=== PATIENT | male | born 1975 | race Caucasian/White ===

== ENCOUNTER 2019-02-28 17:01 | Emergency (ER) | payer BC ==
[2019-02-28 17:06] VITALS: TEMP 98.3
--- NOTE | 2019-02-28 17:48 | ED ---
General Adult HPI - General Source: patient Mode of arrival: ambulatory Limitations: no limitations <Jose Mcmahon - Last Filed: 02/28/19 20:40> <Harpal Molina - Last Filed: 03/02/19 23:00> - General Chief complaint: Recheck/Abnormal Lab/Rx Stated complaint: High blood pressure Time Seen by Provider: 02/28/19 17:24 - History of Present Illness Initial comments: Patient is a 43-year-old male presenting to the emergency department with chief complaint of hypertension. Patient states he was at his primary care office for possible sciatica symptoms and was triaged with a high blood pressure. Patient was sent directly to the ED for further evaluation. Patient reports he was initially on lisinopril hydrochlorothiazide about 2 years ago but stopped taking the medication about one year ago. Patient states she did not follow-up with a primary care for about 2 years. Patient reports she has not had any chest pain, shortness of breath, headaches, visual disturbances, nausea, vomiting, lightheadedness or dizziness. He does not have any complaints right now. (Jose Mcmahon) - Related Data Previous Rx's Medication Instructions Recorded Lisinopril [Zestril] 10 mg PO BID #60 tab 06/04/14 Lisinopril 20 mg PO DAILY #8 tab 02/28/19 Allergies Allergy/AdvReac Type Severity Reaction Status Date / Time No Known Allergies Allergy Verified 02/28/19 17:07 Review of Systems ROS Other: All systems not noted in ROS Statement are negative. <Jose Mcmahon - Last Filed: 02/28/19 20:40> ROS Other: All systems not noted in ROS Statement are negative. <Harpal Molina - Last Filed: 03/02/19 23:00> ROS Statement: Those systems with pertinent positive or pertinent negative responses have been documented in the HPI. Past Medical History Past Medical History: Diabetes Mellitus, Hyperlipidemia, Hypertension History of Any Multi-Drug Resistant Organisms: None Reported Past Surgical History: No Surgical Hx Reported Past Anesthesia/Blood Transfusion Reactions: No Reported Reaction Past Psychological History: No Psychological Hx Reported Smoking Status: Never smoker Past Alcohol Use History: Occasional Past Drug Use History: Marijuana - Past Family History Father Family Medical History: No Reported History <Jose Mcmahon - Last Filed: 02/28/19 20:40> General Exam Limitations: no limitations General appearance: alert, in no apparent distress Head exam: Present: atraumatic, normocephalic, normal inspection Eye exam: Present: normal appearance, PERRL, EOMI. Absent: other (no papilledema ) Pupils: Present: normal accommodation ENT exam: Present: normal exam Neck exam: Present: normal inspection, full ROM Respiratory exam: Present: normal lung sounds bilaterally Cardiovascular Exam: Present: regular rate, normal rhythm, normal heart sounds GI/Abdominal exam: Present: soft. Absent: distended, tenderness, guarding Extremities exam: Present: normal inspection, full ROM, normal capillary refill (+2 ulnar and radial pulses bilaterally.) Back exam: Present: normal inspection, full ROM. Absent: tenderness Neurological exam: Present: alert, oriented X3, CN II-XII intact, normal gait Psychiatric exam: Present: normal affect, normal mood Skin exam: Present: warm, dry, intact, normal color <Jose Mcmahon - Last Filed: 02/28/19 20:40> Course Vital Signs 02/28/19 02/28/19 02/28/19 17:03 18:12 18:58 Temperature 98.3 F 98.3 F Pulse Rate 92 90 94 Respiratory 19 18 19 Rate Blood Pressure 203/124 177/119 179/101 O2 Sat by Pulse 99 100 99 Oximetry Medical Decision Making - Lab Data Result diagrams: 02/28/19 17:22 02/28/19 17:22 <Jose Mcmahon - Last Filed: 02/28/19 20:40> - Lab Data Result diagrams: 02/28/19 17:22 02/28/19 17:22 <Harpal Molina - Last Filed: 03/02/19 23:00> - Medical Decision Making Patient is a 43-year-old male male presenting to the emergency department with a chief complaint of hypertension. Patient is completely is symptomatically the ED. No papilledema present. CBC unremarkable. CMP shows decreasing creatinine but the patient has not in acute kidney failure at the moment. UA shows glucose but patient is diabetic. Patient was given hydralazine in the ED and his blood pressure dropped. Patient was taking lisinopril hydrochlorothiazide for some time but has not taken the medication over the last year. Patient will be discharged with an eight-day course of lisinopril daily. Patient states he only has an appointment scheduled with his primary care within a week. Strict return parameters were thoroughly discussed with patient was understanding and agreeable. Case discussed with physician. (Jose Mcmahon) - Lab Data Lab Results 02/28/19 02/28/19 02/28/19 Range/Units 17:22 17:22 17:22 WBC 11.8 H (3.8-10.6) k/uL RBC 5.41 (4.30-5.90) m/uL Hgb 15.0 (13.0-17.5) gm/dL Hct 44.4 (39.0-53.0) % MCV 81.9 (80.0-100.0) fL MCH 27.7 (25.0-35.0) pg MCHC 33.8 (31.0-37.0) g/dL RDW 12.7 (11.5-15.5) % Plt Count 334 (150-450) k/uL Neutrophils % 59 % Lymphocytes % 33 % Monocytes % 4 % Eosinophils % 2 % Basophils % 0 % Neutrophils # 6.9 (1.3-7.7) k/uL Lymphocytes # 3.9 (1.0-4.8) k/uL Monocytes # 0.5 (0-1.0) k/uL Eosinophils # 0.2 (0-0.7) k/uL Basophils # 0.1 (0-0.2) k/uL Sodium 137 (137-145) mmol/L Potassium 4.3 (3.5-5.1) mmol/L Chloride 101 (98-107) mmol/L Carbon Dioxide 24 (22-30) mmol/L Anion Gap 12 mmol/L BUN 17 (9-20) mg/dL Creatinine 0.56 L (0.66-1.25) mg/dL Est GFR (CKD-EPI)AfAm >90 (>60 ml/min/1.73 sqM) Est GFR (CKD-EPI)NonAf >90 (>60 ml/min/1.73 sqM) Glucose 242 H (74-99) mg/dL Calcium 9.8 (8.4-10.2) mg/dL Total Bilirubin 0.5 (0.2-1.3) mg/dL AST 18 (17-59) U/L ALT 17 (4-49) U/L Alkaline Phosphatase 79 (38-126) U/L Total Protein 8.0 (6.3-8.2) g/dL Albumin 4.7 (3.5-5.0) g/dL Urine Color Yellow Urine Appearance Clear (Clear) Urine pH 5.5 (5.0-8.0) Ur Specific Preemption 1.041 H (1.001-1.035) Urine Protein Trace H (Negative) Urine Glucose (UA) 4+ H (Negative) Urine Ketones 1+ H (Negative) Urine Blood Negative (Negative) Urine Nitrite Negative (Negative) Urine Bilirubin Negative (Negative) Urine Urobilinogen <2.0 (<2.0) mg/dL Ur Leukocyte Esterase Negative (Negative) - EKG Data EKG Comments: Normal sinus rhythm, no ST changes, Normal sinus rhythm, ventricular rate 94, [place] interval 170, QRS 94, QTC 447 (Jose Mcmahon) Disposition Is patient prescribed a controlled substance at d/c from ED?: No Time of Disposition: 18:39 <Jose Mcmahon - Last Filed: 02/28/19 20:40> <Harpal Molina - Last Filed: 03/02/19 23:00> Clinical Impression: Asymptomatic hypertension Disposition: HOME SELF-CARE Condition: Stable Instructions (If sedation given, give patient instructions): Hypertension and Diabetes (ED) Additional Instructions: Please take prescribed medication as directed. Follow-up with primary care. Return to emergency department if symptoms worsen. Prescriptions: Lisinopril 20 mg PO DAILY #8 tab Referrals: Ronaldo Torres MD [Primary Care Provider] - 1-2 days
[2019-02-28 17:50] LABS: Appearance,Urine Clear (Clear); Basophils # (A) 0.1 k/uL (0-0.2); Basophils % (A) 0 %; Bilirubin,Urine Negative (Negative); Blood,Urine Negative (Negative); Color,Urine Yellow; Eosinophils # (A) 0.2 k/uL (0-0.7); Eosinophils % (A) 2 %; Glucose,Urine (UA) 4+ (Negative); HCT 44.4 % (39.0-53.0); Ketones,Urine 1+ (Negative); Leukocyte Esterase,Urine Negative (Negative); Lymphocytes # (A) 3.9 k/uL (1.0-4.8); Lymphocytes % (A) 33 %; MCH 27.7 pg (25.0-35.0); MCHC 33.8 g/dL (31.0-37.0); MCV 81.9 fL (80.0-100.0); Mean Platelet Volume 7.3; Monocytes # (A) 0.5 k/uL (0-1.0); Monocytes % (A) 4 %; Neutrophils # (A) 6.9 k/uL (1.3-7.7); Neutrophils % (A) 59 %; Nitrite,Urine Negative (Negative); PH, Urine 5.5 (5.0-8.0); Platelet Count 334 k/uL (150-450); Protein,Urine Trace (Negative); RBC 5.41 m/uL (4.30-5.90); RDW 12.7 % (11.5-15.5); Specific Gravity,Urine 1.041 (1.001-1.035); Urobilinogen,Urine <2.0 mg/dL (<2.0); WBC 11.8 k/uL (3.8-10.6)
[2019-02-28 18:00] LABS: ALT 17 U/L (4-49); AST 18 U/L (17-59); African American GFR (CKD) >90 (>60 ml/min/1.73 sqM); Albumin 4.7 g/dL (3.5-5.0); Alkaline Phosphatase 79 U/L (38-126); Anion Gap 12 mmol/L; Blood Urea Nitrogen 17 mg/dL (9-20); Calcium 9.8 mg/dL (8.4-10.2); Carbon Dioxide 24 mmol/L (22-30); Chloride 101 mmol/L (98-107); Glucose 242 mg/dL (74-99); Non-African American GFR(CKD) >90 (>60 ml/min/1.73 sqM); Potassium 4.3 mmol/L (3.5-5.1); Sodium 137 mmol/L (137-145); Total Bilirubin 0.5 mg/dL (0.2-1.3)
[2019-02-28] MEDS ORDERED: hydrALAZINE HCL 20 MG/ML 1 ML VIAL IVP STA (18:13)
[2019-02-28 19:05] VITALS: PULSE 94; RESP 19
[2019-02-28 20:43] VITALS: BP 179/101
== END 2019-02-28 18:58 | disposition home or self-care (01) ==
LOC: EC 17:01
DX: I10 Essential (primary) hypertension (principal); R79.89 Other specified abnormal findings of blood chemistry; E11.9 Type 2 diabetes mellitus without complications
CPT/HCPCS: 36415; 93005; 80053; 85025; 81003; 99283; 96374; J0360

== ENCOUNTER 2019-03-05 16:32 | Emergency (ER) | payer BC ==
[2019-03-05 16:50] VITALS: RESP 18
[2019-03-05] MEDS ORDERED: KETOROLAC 30 MG/ML 1 ML VIAL IM STA (17:41)
--- NOTE | 2019-03-05 18:10 | XR ---
EXAMINATION TYPE: XR tibia fibula LT DATE OF EXAM: 03/05/2019 COMPARISON: NONE HISTORY: Pain TECHNIQUE: 4 views FINDINGS: I see no fracture nor dislocation. Joint spaces are normal. Ankle joint and knee joint appe ar intact. IMPRESSION: Negative left tibia and fibula exam.
--- NOTE | 2019-03-05 19:00 | US ---
EXAMINATION TYPE: US venous doppler duplex LE LT DATE OF EXAM: 03/05/2019 6:51 PM COMPARISON: NONE CLINICAL HISTORY: pain. pain SIDE PERFORMED: Left TECHNIQUE: The lower extremity deep venous system is examined utilizing real time linear array sonog [place] with graded compression, doppler sonography and color-flow sonography. VESSELS IMAGED: External Iliac Vein (EIV) Common Femoral Vein Deep Femoral Vein Greater Saphenous Vein * Femoral Vein Popliteal Vein Small Saphenous Vein * Proximal Calf Veins (* superficial vessels) Left Leg: Negative for DVT IMPRESSION: Normal exam. No evidence of deep venous thrombosis in the left leg.
[2019-03-05 19:23] VITALS: BP 182/103; PULSE 94; TEMP 98.6
[2019-03-05] MEDS ORDERED: ACET/COD 300 MG/30 MG STARTER PACK 6 TAB BTL PO STA (19:32)
--- NOTE | 2019-03-05 19:32 | ED ---
General Adult HPI - General Source: patient, RN notes reviewed Mode of arrival: ambulatory Limitations: no limitations <Get Kirkpatrick - Last Filed: 03/05/19 20:49> <Vidhya Jara - Last Filed: 03/10/19 14:46> - General Chief complaint: Extremity Problem,Nontraumatic Stated complaint: Leg pain Time Seen by Provider: 03/05/19 17:14 - History of Present Illness Initial comments: 43-year-old male presents to the emergency determine for chief complaint of left anterior leg pain. Patient states that this started about a week ago. States that he did try to see primary care was signed have high blood pressure and so that became the main concern and he did not have his leg evaluated. Patient states movement makes the pain worse. Patient states lifting the leg makes it worse. Patient denies any swelling or erythema of the left leg. Denies fevers or chills. Denies any abdominal pain. Denies any numbness or weakness of the left lower extremity. Denies any bladder or bowel changes. Patient is ambulatory in the left leg. Patient has no other complaints at this time including shortness of breath, chest pain, abdominal pain, nausea or vomiting, headache, or visual changes. (Get Kirkpatrick) - Related Data Previous Rx's Medication Instructions Recorded Lisinopril [Zestril] 10 mg PO BID #60 tab 06/04/14 Lisinopril 20 mg PO DAILY #8 tab 02/28/19 Allergies Allergy/AdvReac Type Severity Reaction Status Date / Time No Known Allergies Allergy Verified 03/05/19 16:50 Review of Systems ROS Other: All systems not noted in ROS Statement are negative. <Get Kirkpatrick - Last Filed: 03/05/19 20:49> ROS Other: All systems not noted in ROS Statement are negative. <Vidhya Jara - Last Filed: 03/10/19 14:46> ROS Statement: Those systems with pertinent positive or pertinent negative responses have been documented in the HPI. Past Medical History Past Medical History: Diabetes Mellitus, Hyperlipidemia, Hypertension History of Any Multi-Drug Resistant Organisms: None Reported Past Surgical History: No Surgical Hx Reported Past Anesthesia/Blood Transfusion Reactions: No Reported Reaction Past Psychological History: No Psychological Hx Reported Smoking Status: Never smoker Past Alcohol Use History: Occasional Past Drug Use History: Marijuana - Past Family History Father Family Medical History: No Reported History <Get Kirkpatrick - Last Filed: 03/05/19 20:49> General Exam Limitations: no limitations General appearance: alert, in no apparent distress Head exam: Present: atraumatic, normocephalic, normal inspection Eye exam: Present: normal appearance, PERRL, EOMI. Absent: scleral icterus, conjunctival injection, periorbital swelling ENT exam: Present: normal exam, mucous membranes moist Neck exam: Present: normal inspection, full ROM. Absent: tenderness, meningismus, lymphadenopathy Respiratory exam: Present: normal lung sounds bilaterally. Absent: respiratory distress, wheezes, rales, rhonchi, stridor Cardiovascular Exam: Present: regular rate, normal rhythm, normal heart sounds. Absent: systolic murmur, diastolic murmur, rubs, gallop, clicks Extremities exam: Present: full ROM (Full range of motion of the left lower extremity, including left hip knee and ankle. However patient does have increased pain when flexing the left hip with an extended knee. Positive straight leg raise test.), normal capillary refill (Capillary refill less than 2 seconds, Doppler signals in bilateral lower extremities.). Absent: tenderness (No significant tenderness noted to the left lower leg. ), pedal edema, joint swelling, calf tenderness (No tenderness in the left calf. Sensation intact in left calf. No increased circumference or edema. No erythema.) <Get Kirkpatrick P - Last Filed: 03/05/19 20:49> Course Vital Signs 03/05/19 03/05/19 16:49 19:21 Temperature 98.4 F 98.6 F Pulse Rate 90 94 Respiratory 18 18 Rate Blood Pressure 162/106 182/103 O2 Sat by Pulse 98 97 Oximetry Medical Decision Making <Get Kirkpatrick P - Last Filed: 03/05/19 20:49> <Vidhya Jara - Last Filed: 03/10/19 14:46> - Medical Decision Making 43-year-old presents with left leg pain. Pain is mostly in the anterior lateral tib-fib area. He does have some pain in the left buttocks as well. Pain is exacerbated with straight leg raise. Patient states the pain does sometimes shoot in his symptoms of burning pain in the left anterior tib-fib area. Denies trauma. Neurovascular status is intact the left lower extremity. Physical exam is generally unremarkable. X-ray of the left tib-fib is negative. Ultrasound of the left lower extremity shows no evidence of DVT. Normal exam. Patient may have radiculopathy symptoms are consistent with this. Patient does have diabetes, will not be started on steroids. Discussed anti-inflammatory medications. He has an appointment with primary care tomorrow for which she will follow-up. I also hand wrote Dr. Cox's number for consult on the paperwork. Is hypertensive here in the emergency room. This is chronic and currently being managed by primary care. He is asymptomatic. (Get Kirkpatrick) I was available for consultation in the emergency department. The history and physical exam were done by the midlevel provider. I was consulted for this patients care. I reviewed the case with the midlevel provider and based on their presentation of the patient, I agree with the assessment, medical decision making and plan of care as documented. Chart was dictated using [employer] dictation software. Attempts were made to correct any dictation errors however some typographical errors may persist. (Vidhya Jara) Disposition Is patient prescribed a controlled substance at d/c from ED?: No Time of Disposition: 19:31 <Get Kirkpatrick - Last Filed: 03/05/19 20:49> <Vidhya Jara - Last Filed: 03/10/19 14:46> Clinical Impression: Leg pain, left Disposition: HOME SELF-CARE Condition: Good Instructions (If sedation given, give patient instructions): Sciatica (ED), Leg Pain (ED) Additional Instructions: Please take Motrin and Tylenol for inflammatory and pain management. If pain is severe you may take Tylenol [address] operate machinery while taking this. Follow-up with your primary care provider tomorrow at your scheduled appointment for leg pain and high blood pressure. Follow up with orthopedics as well. Return here to the emergency department if you have any worsening symptoms. Referrals: Ronaldo Torres MD [Primary Care Provider] - 1-2 days
== END 2019-03-05 20:02 | disposition home or self-care (01) ==
LOC: EC 16:32
DX: M79.605 Pain in left leg (principal); I10 Essential (primary) hypertension; E11.9 Type 2 diabetes mellitus without complications
CPT/HCPCS: 73590; 93971; 99284; 96372; J1885

== ENCOUNTER 2019-04-17 10:34 | Emergency (ER) | payer BC ==
[2019-04-17 10:45] VITALS: RESP 18; TEMP 98.4
[2019-04-17] MEDS ORDERED: ASPIRIN 81 MG PO STA (10:59)
[2019-04-17 11:55] LABS: Basophils # (A) 0.1 k/uL (0-0.2); Basophils % (A) 0 %; Eosinophils # (A) 0.2 k/uL (0-0.7); Eosinophils % (A) 1 %; HCT 41.9 % (39.0-53.0); HGB 14.6 gm/dL (13.0-17.5); Lymphocytes # (A) 4.3 k/uL (1.0-4.8); Lymphocytes % (A) 34 %; MCH 27.8 pg (25.0-35.0); MCHC 34.7 g/dL (31.0-37.0); Mean Platelet Volume 7.5; Monocytes # (A) 0.6 k/uL (0-1.0); Monocytes % (A) 5 %; Neutrophils # (A) 7.3 k/uL (1.3-7.7); Neutrophils % (A) 58 %; Platelet Count 384 k/uL (150-450); RBC 5.24 m/uL (4.30-5.90); RDW 12.2 % (11.5-15.5); WBC 12.6 k/uL (3.8-10.6)
[2019-04-17 11:57] LABS: ALT 14 U/L (4-49); AST 16 U/L (17-59); African American GFR (CKD) >90 (>60 ml/min/1.73 sqM); Albumin 4.5 g/dL (3.5-5.0); Alkaline Phosphatase 45 U/L (38-126); Anion Gap 11 mmol/L; Blood Urea Nitrogen 19 mg/dL (9-20); Calcium 10.3 mg/dL (8.4-10.2); Carbon Dioxide 20 mmol/L (22-30); Chloride 103 mmol/L (98-107); Glucose 201 mg/dL (74-99); Magnesium 1.6 mg/dL (1.6-2.3); Non-African American GFR(CKD) >90 (>60 ml/min/1.73 sqM); Potassium 4.6 mmol/L (3.5-5.1); Sodium 134 mmol/L (137-145); Total Bilirubin 0.4 mg/dL (0.2-1.3); Total Protein 7.5 g/dL (6.3-8.2)
--- NOTE | 2019-04-17 11:58 | XR ---
EXAMINATION TYPE: XR chest 2V DATE OF EXAM: 04/17/2019 COMPARISON: 01/18/2015 HISTORY: Dysrhythmia TECHNIQUE: Frontal and lateral views of the chest are obtained. FINDINGS: There is no focal air space opacity, pleural effusion, or pneumothorax seen. The cardiac silhouette size is within normal limits. The osseous structures are intact. IMPRESSION: No acute cardiopulmonary process.
[2019-04-17 12:02] LABS: Partial Thromboplastin Time 25.6 sec (22.0-30.0); Prothrombin Time 10.2 sec (9.0-12.0)
--- NOTE | 2019-04-17 12:52 | ED ---
Arrhythmia/Palpitations HPI - General Chief Complaint: Arrhythmia/Palpitations Stated Complaint: heart concerns/dizziness Time Seen by Provider: 04/17/19 10:57 Source: patient Mode of arrival: ambulatory Limitations: no limitations - History of Present Illness Initial Comments: Patient is a 43-year-old male presenting to the emergency Department with a chief complaint of palpitations. Patient reports symptoms began about 3 days ago. Initially the symptoms were intermittent, however today he felt the palpitations were more constant. States that currently he does not have any symptoms. Denies any chest pain. Does report some lightheadedness but denies any dizziness. Denies any one-sided weakness or paresthesias. Denies any shortness of breath or dyspnea on exertion. Denies any back pain abdominal pain, denies vomiting or diarrhea. Denies any diaphoretic O's. Denies taking medication to alleviate the symptoms. States his most recent cardiac checkup was about 2 years ago. He states he never required Holter monitor previously. MD Complaint: palpitations - Related Data Home Medications Medication Instructions Recorded Confirmed Atorvastatin [Lipitor] 20 mg PO DAILY 04/17/19 04/17/19 Ergocalciferol [Vitamin D2] 50,000 unit PO DECKER 04/17/19 04/17/19 Ibuprofen [Motrin] 800 mg PO Q8H 04/17/19 04/17/19 Lisinopril-Hctz 20-12.5 mg 1 tab PO DAILY 04/17/19 04/17/19 [Zestoretic 20-12.5] amLODIPine [Norvasc] 5 mg PO DAILY 04/17/19 04/17/19 metFORMIN HCL 850 mg PO BID 04/17/19 04/17/19 traMADol HCL [Ultram] 50 mg PO TID PRN 04/17/19 04/17/19 Allergies Allergy/AdvReac Type Severity Reaction Status Date / Time No Known Allergies Allergy Verified 04/17/19 11:53 Review of Systems ROS Statement: Those systems with pertinent positive or pertinent negative responses have been documented in the HPI. ROS Other: All systems not noted in ROS Statement are negative. Past Medical History Past Medical History: Diabetes Mellitus, Hyperlipidemia, Hypertension Additional Past Medical History / Comment(s): chronic leg pain History of Any Multi-Drug Resistant Organisms: None Reported Past Surgical History: No Surgical Hx Reported Past Anesthesia/Blood Transfusion Reactions: No Reported Reaction Past Psychological History: No Psychological Hx Reported Smoking Status: Never smoker Past Alcohol Use History: Occasional Past Drug Use History: None Reported, Marijuana - Past Family History Father Family Medical History: No Reported History General Exam Limitations: no limitations General appearance: alert, in no apparent distress Head exam: Present: atraumatic, normocephalic, normal inspection Eye exam: Present: normal appearance Pupils: Present: normal accommodation ENT exam: Present: normal exam Neck exam: Present: normal inspection, full ROM Respiratory exam: Present: normal lung sounds bilaterally Cardiovascular Exam: Present: regular rate, normal rhythm, normal heart sounds GI/Abdominal exam: Present: soft. Absent: distended, guarding Extremities exam: Present: normal inspection, full ROM, normal capillary refill, other (+2 ulnar and radial pulses bilaterally.) Back exam: Present: normal inspection, full ROM Neurological exam: Present: alert, oriented X3 Psychiatric exam: Present: normal affect, normal mood Skin exam: Present: warm, dry, intact, normal color Course Vital Signs 04/17/19 04/17/19 04/17/19 10:42 12:18 13:14 Temperature 98.4 F Pulse Rate 97 91 93 Respiratory 18 18 18 Rate Blood Pressure 128/88 109/73 113/80 O2 Sat by Pulse 99 97 99 Oximetry EKG Findings - EKG Comments: EKG Findings:: Normal sinus rhythm, no ST changes or T-wave inversions. Particular rate 93, SD 166, QRS 90, QTC 410. Medical Decision Making - Medical Decision Making Patient is a 43-year-old male presenting to the emergency department the chief complaint of palpitations. Physical examination is unremarkable. EKG shows normal sinus rhythm with no ST changes. Laboratory work is unremarkable. Patient does have elevated glucose but he is diabetic. Initial troponin is negative. Chest x-ray is unremarkable. Patient states currently he is asymptomatic. Advised the patient to follow with cardiology and have an evaluation with a Holter monitor. Return parameters were thoroughly discussed with patient was understanding and agreeable. Case discussed with physician. - Lab Data Result diagrams: 04/17/19 11:32 04/17/19 11:32 Lab Results 04/17/19 04/17/19 04/17/19 Range/Units 11:32 11:32 11:32 WBC 12.6 H (3.8-10.6) k/uL RBC 5.24 (4.30-5.90) m/uL Hgb 14.6 (13.0-17.5) gm/dL Hct 41.9 (39.0-53.0) % MCV 80.0 (80.0-100.0) fL MCH 27.8 (25.0-35.0) pg MCHC 34.7 (31.0-37.0) g/dL RDW 12.2 (11.5-15.5) % Plt Count 384 (150-450) k/uL Neutrophils % 58 % Lymphocytes % 34 % Monocytes % 5 % Eosinophils % 1 % Basophils % 0 % Neutrophils # 7.3 (1.3-7.7) k/uL Lymphocytes # 4.3 (1.0-4.8) k/uL Monocytes # 0.6 (0-1.0) k/uL Eosinophils # 0.2 (0-0.7) k/uL Basophils # 0.1 (0-0.2) k/uL PT 10.2 (9.0-12.0) sec INR 1.0 (<1.2) APTT 25.6 (22.0-30.0) sec Sodium 134 L (137-145) mmol/L Potassium 4.6 (3.5-5.1) mmol/L Chloride 103 (98-107) mmol/L Carbon Dioxide 20 L (22-30) mmol/L Anion Gap 11 mmol/L BUN 19 (9-20) mg/dL Creatinine 0.66 (0.66-1.25) mg/dL Est GFR (CKD-EPI)AfAm >90 (>60 ml/min/1.73 sqM) Est GFR (CKD-EPI)NonAf >90 (>60 ml/min/1.73 sqM) Glucose 201 H (74-99) mg/dL Calcium 10.3 H (8.4-10.2) mg/dL Magnesium 1.6 (1.6-2.3) mg/dL Total Bilirubin 0.4 (0.2-1.3) mg/dL AST 16 L (17-59) U/L ALT 14 (4-49) U/L Alkaline Phosphatase 45 (38-126) U/L Troponin I (0.000-0.034) ng/mL Total Protein 7.5 (6.3-8.2) g/dL Albumin 4.5 (3.5-5.0) g/dL 04/17/19 Range/Units 11:32 WBC (3.8-10.6) k/uL RBC (4.30-5.90) m/uL Hgb (13.0-17.5) gm/dL Hct (39.0-53.0) % MCV (80.0-100.0) fL MCH (25.0-35.0) pg MCHC (31.0-37.0) g/dL RDW (11.5-15.5) % Plt Count (150-450) k/uL Neutrophils % % Lymphocytes % % Monocytes % % Eosinophils % % Basophils % % Neutrophils # (1.3-7.7) k/uL Lymphocytes # (1.0-4.8) k/uL Monocytes # (0-1.0) k/uL Eosinophils # (0-0.7) k/uL Basophils # (0-0.2) k/uL PT (9.0-12.0) sec INR (<1.2) APTT (22.0-30.0) sec Sodium (137-145) mmol/L Potassium (3.5-5.1) mmol/L Chloride (98-107) mmol/L Carbon Dioxide (22-30) mmol/L Anion Gap mmol/L BUN (9-20) mg/dL Creatinine (0.66-1.25) mg/dL Est GFR (CKD-EPI)AfAm (>60 ml/min/1.73 sqM) Est GFR (CKD-EPI)NonAf (>60 ml/min/1.73 sqM) Glucose (74-99) mg/dL Calcium (8.4-10.2) mg/dL Magnesium (1.6-2.3) mg/dL Total Bilirubin (0.2-1.3) mg/dL AST (17-59) U/L ALT (4-49) U/L Alkaline Phosphatase (38-126) U/L Troponin I <0.012 (0.000-0.034) ng/mL Total Protein (6.3-8.2) g/dL Albumin (3.5-5.0) g/dL Disposition Clinical Impression: Palpitations Disposition: HOME SELF-CARE Condition: Stable Instructions (If sedation given, give patient instructions): Heart Palpitations (ED) Additional Instructions: Follow-up with a engineering test specialist. Return to emergency department if symptoms worsen. Is patient prescribed a controlled substance at d/c from ED?: No Referrals: Ronaldo Torres MD [Primary Care Provider] - 1-2 days Judah Byrd MD [STAFF PHYSICIAN] - 1-2 days Time of Disposition: 12:51
[2019-04-17 13:19] VITALS: BP 113/80; PULSE 93
== END 2019-04-17 13:14 | disposition home or self-care (01) ==
LOC: EC 10:34
DX: R00.2 Palpitations (principal); E11.65 Type 2 diabetes mellitus with hyperglycemia; E78.5 Hyperlipidemia, unspecified; I10 Essential (primary) hypertension; G89.29 Other chronic pain; M79.606 Pain in leg, unspecified; Z79.84 Long term (current) use of oral hypoglycemic drugs; Z79.899 Other long term (current) drug therapy
CPT/HCPCS: 36415; 71046; 80053; 83735; 84484; 85025; 85610; 85730; 93005; 99285

== ENCOUNTER → 2021-04-25 | Outpatient (CLI) | payer BC ==
[2021-04-25 18:16] LABS: Basophils # (A) 0.07 X 10*3/uL (0.00-0.10); Basophils % (A) 0.6 %; Eosinophils # (A) 0.27 X 10*3/uL (0.04-0.35); Eosinophils % (A) 2.2 %; HCT 46.9 % (39.6-50.0); HGB 15.8 g/dL (13.0-17.0); Immature Grans, Automated 0.6 %; Lymphocytes # (A) 3.84 X 10*3/uL (0.90-5.00); Lymphocytes % (A) 31.2 %; MCH 27.7 pg (27.0-32.0); MCHC 33.7 g/dL (32.0-37.0); MCV 82.3 fL (80.0-97.0); Mean Platelet Volume 10.4 fL (9.5-12.2); Monocytes # (A) 0.92 X 10*3/uL (0.20-1.00); Monocytes % (A) 7.5 %; NRBC Per 100 WBC 0 /100 WBCS (0.0-0.0); Neutrophils # (A) 7.13 X 10*3/uL (1.80-7.70); Neutrophils % (A) 57.9 %; Platelet Count 469 X 10*3/uL (140-440); RDW 11.9 % (11.5-14.5); WBC 12.31 X 10*3/uL (4.50-10.00)
[2021-04-25 18:31] LABS: African American GFR (CKD) 124.2 (60.0-200.0); Anion Gap 15.6 mmol/L (10.00-18.00); BUN/Creat Ratio 23.5 Ratio (12.00-20.00); Blood Urea Nitrogen 18.8 mg/dL (9.0-27.0); Calcium 10.7 mg/dL (8.7-10.3); Carbon Dioxide 22.4 mmol/L (20.0-27.5); Non-African American GFR(CKD) 107.1 (60.0-200.0); Potassium 5.1 mmol/L (3.5-5.5)
== END | disposition home or self-care (01) ==
LOC: LABWHC1 12:26
PROVIDERS: ATTEND Nurse Practitioner Family
DX: E87.6 Hypokalemia (principal); D72.89 Other specified disorders of white blood cells
CPT/HCPCS: 36415; 80048; 85025

== ENCOUNTER 2021-05-02 16:16 | Emergency (ER) | payer BC ==
[2021-05-02 16:20] VITALS: TEMP 97.8
[2021-05-02 17:32] LABS: Glucose,Whole Blood 222 mg/dL (75-99)
[2021-05-02 17:58] LABS: Basophils # (A) 0.1 k/uL (0-0.2); Basophils % (A) 1 %; Eosinophils # (A) 0.2 k/uL (0-0.7); Eosinophils % (A) 2 %; HGB 14.9 gm/dL (13.0-17.5); Lymphocytes # (A) 3.4 k/uL (1.0-4.8); Lymphocytes % (A) 26 %; MCH 28.3 pg (25.0-35.0); MCHC 34.6 g/dL (31.0-37.0); MCV 81.9 fL (80.0-100.0); Mean Platelet Volume 7.9; Monocytes # (A) 0.9 k/uL (0-1.0); Monocytes % (A) 7 %; Neutrophils # (A) 8.4 k/uL (1.3-7.7); Neutrophils % (A) 64 %; Platelet Count 372 k/uL (150-450); RBC 5.25 m/uL (4.30-5.90); RDW 11.8 % (11.5-15.5); WBC 13.1 k/uL (3.8-10.6)
[2021-05-02 18:05] LABS: Prothrombin Time 10.8 sec (9.0-12.0)
[2021-05-02 18:07] LABS: ALT 12 U/L (4-49); AST 16 U/L (17-59); African American GFR (CKD) >90 (>60 ml/min/1.73 sqM); Albumin 4.5 g/dL (3.5-5.0); Alkaline Phosphatase 66 U/L (38-126); Anion Gap 12 mmol/L; Blood Urea Nitrogen 26 mg/dL (9-20); Carbon Dioxide 22 mmol/L (22-30); Chloride 97 mmol/L (98-107); Glucose 207 mg/dL (74-99); Non-African American GFR(CKD) >90 (>60 ml/min/1.73 sqM); Sodium 131 mmol/L (137-145); Total Bilirubin 0.5 mg/dL (0.2-1.3); Total Protein 7.5 g/dL (6.3-8.2)
[2021-05-02] MEDS ORDERED: SODIUM CHLORIDE 0.9% 1,000 ML IV ONE (18:11)
[2021-05-02 18:21] LABS: Potassium 4.1 mmol/L (3.5-5.1)
--- NOTE | 2021-05-02 18:28 | ED ---
Dizziness HPI - General Chief Complaint: Dizziness Stated Complaint: dizziness, SOB Time Seen by Provider: 05/02/21 17:57 Source: patient Mode of arrival: ambulatory - History of Present Illness Initial Comments: This is a pleasant 45-year-old male with a history of diabetes mellitus which is insulin control. Also has a history of hypertension which has been poorly c ontrolled. Hyperlipidemia. He presents to emergency department today complaining of lightheadedness. Here she stated dizziness in triage but it sounds as if it's more of a lightheadedness which started yesterday at about 1:30. She states it does seem to be exacerbated by movements. Denying any vertiginous symptomology. No chest pain or shortness of breath. He states he has been getting intermittent headaches to the right side of his head. He states these are fleeting, coming and going, lasting about 5 seconds and going away. States they might, about once per hour on average. This started at 9 AM this morning. Patient was recently admitted for uncontrolled hypertension and uncontrolled diabetes. Patient had neurological evaluation. Patient denying any other symptomology. NO current headache. No fever or chills, no changes in vision or hearing, no sore throat or difficulty with speech, no neck pain, no chest pain or shortness of breath, no abdominal pain, no nausea or vomiting, no changes in urination or bowel movements, no numbness or tingling, no extremity pain, no skin rashes or lesions. - Related Data Home Medications Medication Instructions Recorded Confirmed INSULIN ASPART (NovoLOG) [NovoLOG See Protocol SQ ACHS 05/02/21 05/02/21 (formulary)] Previous Rx's Medication Instructions Recorded Chlorthalidone [Hygroton] 25 mg PO DAILY #30 tab 04/23/21 Cyanocobalamin [Vitamin B-12] 1,000 mcg PO DAILY #30 tab 04/23/21 Insulin Glargine [Lantus Vial] 10 unit SQ HS 30 Days #30 ml 04/23/21 Losartan [Cozaar] 50 mg PO DAILY #30 tab 04/23/21 Thiamine [Vitamin B-1] 100 mg PO DAILY #30 tab 04/23/21 carvediloL [Coreg] 6.25 mg PO BID-W/MEALS #60 tab 04/23/21 metFORMIN HCL [Glucophage] 1,000 mg PO BID-W/MEALS #60 tab 04/23/21 Allergies Allergy/AdvReac Type Severity Reaction Status Date / Time No Known Allergies Allergy Verified 05/02/21 18:55 Review of Systems ROS Statement: Those systems with pertinent positive or pertinent negative responses have been documented in the HPI. ROS Other: All systems not noted in ROS Statement are negative. Past Medical History Past Medical History: Diabetes Mellitus, Hyperlipidemia, Hypertension Additional Past Medical History / Comment(s): chronic leg pain History of Any Multi-Drug Resistant Organisms: None Reported Past Surgical History: No Surgical Hx Reported Additional Past Surgical History / Comment(s): EGD years ago r/t stomach pains Past Anesthesia/Blood Transfusion Reactions: No Reported Reaction Past Psychological History: No Psychological Hx Reported Smoking Status: Never smoker Past Alcohol Use History: Occasional Past Drug Use History: Marijuana - Past Family History Mother Family Medical History: Diabetes Mellitus Father Family Medical History: No Reported History General Exam - General Exam Comments Initial Comments: This is a 45-year-old male presents in no significant distress. Patient does not appear to be ill or toxic. Vital signs reviewed. Minimally hypertensive. Cranial nerves II through XII are intact. Patient alert and oriented 4. General appearance: alert, in no apparent distress Head exam: Present: atraumatic, normocephalic, normal inspection Eye exam: Present: normal appearance, PERRL, EOMI. Absent: scleral icterus, conjunctival injection, periorbital swelling Pupils: Present: normal accommodation ENT exam: Present: normal exam, normal oropharynx, mucous membranes moist, TM's normal bilaterally, normal external ear exam. Absent: mucous membranes dry Neck exam: Present: normal inspection, full ROM. Absent: tenderness, meningismus, lymphadenopathy Respiratory exam: Present: normal lung sounds bilaterally. Absent: respiratory distress, wheezes, rales, rhonchi, stridor, chest wall tenderness, accessory muscle use Cardiovascular Exam: Present: regular rate, normal rhythm, normal heart sounds. Absent: systolic murmur, diastolic murmur, rubs, gallop, clicks GI/Abdominal exam: Present: soft, normal bowel sounds. Absent: distended, tenderness, guarding, rebound, rigid Rectal exam: Present: deferred Extremities exam: Present: normal inspection, full ROM, normal capillary refill. Absent: tenderness, pedal edema, joint swelling, calf tenderness Back exam: Present: normal inspection, full ROM Neurological exam: Present: alert, oriented X3, CN II-XII intact, normal gait, reflexes normal, other (Finger to nose and Romberg are normal.). Absent: altered, abnormal gait, motor sensory deficit Psychiatric exam: Present: normal affect, normal mood Skin exam: Present: warm, dry, intact, normal color. Absent: rash Course Vital Signs 05/02/21 05/02/21 05/02/21 16:17 18:32 19:19 Temperature 97.8 F Pulse Rate 98 90 84 Respiratory 18 18 22 Rate Blood Pressure 151/95 119/85 139/89 O2 Sat by Pulse 99 95 98 Oximetry - Reevaluation(s) Reevaluation #1: 05/02/21 20:25 Medical record is reviewed Symptoms are improved here in the emergency department Patient is informed of results and questions answered Patient in no distress Patient has been asymptomatic here in the ER. Feels better after fluids. EKG Findings - EKG Comments: EKG Findings:: EKG done at 1819. ED attending physician shows sinus rhythm rate of 91. No acute ST or T-wave changes. Normal axis. Normal intervals. Normal QRS morphology. Medical Decision Making - Medical Decision Making Patient comes to the emergency department complaining of fleeting right-sided headache and lightheadedness since yesterday. No focal neurologic deficits. Patient has no current headache. Patient states the lightheadedness is better now but relates this to his blood sugars were which apparently running about the 200 range. Patient was recently admitted here about 11 days ago and kept for 3 days for hypertensive urgency as well as headaches and visual changes. Patient ended up having a computed tomography scan EEG, neurological evaluation. During his admission the patient was evaluated by cardiology as well. Patient's blood pressure was advised to under 1/133. Patient's hemoglobin A1c was noted to be 12.2. Patient was also thought to have a possible seizure at work. Apparently patient had an event where he had shaking his legs and felt confused. The case was discussed in detail with ED attending physician. Presentation, findings, treatment plan discussed in detail. Patient was reevaluated prior to discharge and is in no distress. Is asymptomatic. Has not had any headache or significant lightheadedness here in the ER. States he feels better after fluids. Patient's blood urea nitrogen/creatinine ratio would indicate that he has some level of dehydration. There was also hyperglycemia. Patient has leukocytosis which she has had in the past. - Lab Data Result diagrams: 05/02/21 17:50 05/02/21 17:50 Lab Results 05/02/21 05/02/21 05/02/21 Range/Units 17:30 17:50 17:50 WBC 13.1 H (3.8-10.6) k/uL RBC 5.25 (4.30-5.90) m/uL Hgb 14.9 (13.0-17.5) gm/dL Hct 43.0 (39.0-53.0) % MCV 81.9 (80.0-100.0) fL MCH 28.3 (25.0-35.0) pg MCHC 34.6 (31.0-37.0) g/dL RDW 11.8 (11.5-15.5) % Plt Count 372 (150-450) k/uL MPV 7.9 Neutrophils % 64 % Lymphocytes % 26 % Monocytes % 7 % Eosinophils % 2 % Basophils % 1 % Neutrophils # 8.4 H (1.3-7.7) k/uL Lymphocytes # 3.4 (1.0-4.8) k/uL Monocytes # 0.9 (0-1.0) k/uL Eosinophils # 0.2 (0-0.7) k/uL Basophils # 0.1 (0-0.2) k/uL PT 10.8 (9.0-12.0) sec INR 1.0 (<1.2) Sodium (137-145) mmol/L Potassium (3.5-5.1) mmol/L Chloride (98-107) mmol/L Carbon Dioxide (22-30) mmol/L Anion Gap mmol/L BUN (9-20) mg/dL Creatinine (0.66-1.25) mg/dL Est GFR (CKD-EPI)AfAm (>60 ml/min/1.73 sqM) Est GFR (CKD-EPI)NonAf (>60 ml/min/1.73 sqM) Glucose (74-99) mg/dL POC Glucose (mg/dL) 222 H (75-99) mg/dL POC Glu [employer] Consultant ID Ekta Maher Plasma Lactic Acid Miguelito (0.7-2.0) mmol/L Calcium (8.4-10.2) mg/dL Magnesium (1.6-2.3) mg/dL Total Bilirubin (0.2-1.3) mg/dL AST (17-59) U/L ALT (4-49) U/L Alkaline Phosphatase (38-126) U/L Troponin I (0.000-0.034) ng/mL Total Protein (6.3-8.2) g/dL Albumin (3.5-5.0) g/dL 05/02/21 05/02/21 05/02/21 Range/Units 17:50 17:50 17:50 WBC (3.8-10.6) k/uL RBC (4.30-5.90) m/uL Hgb (13.0-17.5) gm/dL Hct (39.0-53.0) % MCV (80.0-100.0) fL MCH (25.0-35.0) pg MCHC (31.0-37.0) g/dL RDW (11.5-15.5) % Plt Count (150-450) k/uL MPV Neutrophils % % Lymphocytes % % Monocytes % % Eosinophils % % Basophils % % Neutrophils # (1.3-7.7) k/uL Lymphocytes # (1.0-4.8) k/uL Monocytes # (0-1.0) k/uL Eosinophils # (0-0.7) k/uL Basophils # (0-0.2) k/uL PT (9.0-12.0) sec INR (<1.2) Sodium 131 L (137-145) mmol/L Potassium 4.1 (3.5-5.1) mmol/L Chloride 97 L (98-107) mmol/L Carbon Dioxide 22 (22-30) mmol/L Anion Gap 12 mmol/L BUN 26 H (9-20) mg/dL Creatinine 0.74 (0.66-1.25) mg/dL Est GFR (CKD-EPI)AfAm >90 (>60 ml/min/1.73 sqM) Est GFR (CKD-EPI)NonAf >90 (>60 ml/min/1.73 sqM) Glucose 207 H (74-99) mg/dL POC Glucose (mg/dL) (75-99) mg/dL POC Glu Data Processing Systems Consultant ID Plasma Lactic Acid Miguelito 1.7 (0.7-2.0) mmol/L Calcium 10.0 (8.4-10.2) mg/dL Magnesium (1.6-2.3) mg/dL Total Bilirubin 0.5 (0.2-1.3) mg/dL AST 16 L (17-59) U/L ALT 12 (4-49) U/L Alkaline Phosphatase 66 (38-126) U/L Troponin I <0.012 (0.000-0.034) ng/mL Total Protein 7.5 (6.3-8.2) g/dL Albumin 4.5 (3.5-5.0) g/dL 05/02/21 Range/Units 18:03 WBC (3.8-10.6) k/uL RBC (4.30-5.90) m/uL Hgb (13.0-17.5) gm/dL Hct (39.0-53.0) % MCV (80.0-100.0) fL MCH (25.0-35.0) pg MCHC (31.0-37.0) g/dL RDW (11.5-15.5) % Plt Count (150-450) k/uL MPV Neutrophils % % Lymphocytes % % Monocytes % % Eosinophils % % Basophils % % Neutrophils # (1.3-7.7) k/uL Lymphocytes # (1.0-4.8) k/uL Monocytes # (0-1.0) k/uL Eosinophils # (0-0.7) k/uL Basophils # (0-0.2) k/uL PT (9.0-12.0) sec INR (<1.2) Sodium (137-145) mmol/L Potassium (3.5-5.1) mmol/L Chloride (98-107) mmol/L Carbon Dioxide (22-30) mmol/L Anion Gap mmol/L BUN (9-20) mg/dL Creatinine (0.66-1.25) mg/dL Est GFR (CKD-EPI)AfAm (>60 ml/min/1.73 sqM) Est GFR (CKD-EPI)NonAf (>60 ml/min/1.73 sqM) Glucose (74-99) mg/dL POC Glucose (mg/dL) (75-99) mg/dL POC Glu [employer] Processing [employer] Consultant ID Plasma Lactic Acid Miguelito (0.7-2.0) mmol/L Calcium (8.4-10.2) mg/dL Magnesium 1.8 (1.6-2.3) mg/dL Total Bilirubin (0.2-1.3) mg/dL AST (17-59) U/L ALT (4-49) U/L Alkaline Phosphatase (38-126) U/L Troponin I (0.000-0.034) ng/mL Total Protein (6.3-8.2) g/dL Albumin (3.5-5.0) g/dL Disposition Clinical Impression: Dehydration, Hyperglycemia due to diabetes mellitus, Headache, Lightheadedness Disposition: HOME SELF-CARE Condition: Good Additional Instructions: Follow-up with your regular physician as directed. Return to the ER immediately if any symptoms worsen, new symptoms arise, or any other problems develop. Make sure you follow-up with your regular doctor proceed with the outpatient MRI as discussed. Return here to the emergency room immediately if any symptoms worsen or recur. Is patient prescribed a controlled substance at d/c from ED?: No Referrals: Dash Garcia MD [Primary Care Provider] - 05/05/21 Time of Disposition: 20:27
[2021-05-02 19:22] VITALS: PULSE 84; RESP 22
[2021-05-02 20:41] VITALS: BP 140/88
== END 2021-05-02 20:41 | disposition home or self-care (01) ==
LOC: EC 16:16
DX: E86.0 Dehydration (principal); E11.65 Type 2 diabetes mellitus with hyperglycemia; R51.9 Headache, unspecified; I10 Essential (primary) hypertension; E78.5 Hyperlipidemia, unspecified; F12.90 Cannabis use, unspecified, uncomplicated; Z79.4 Long term (current) use of insulin; Z79.84 Long term (current) use of oral hypoglycemic drugs; Z79.899 Other long term (current) drug therapy
CPT/HCPCS: 36415; 80053; 83605; 83735; 84484; 85025; 85610; 93005; 99284

== ENCOUNTER 2021-09-10 18:42 | Emergency (ER) | payer BC ==
[2021-09-10 19:04] VITALS: BP 170/100; PULSE 92; RESP 16; TEMP 98.3
[2021-09-10 19:06] LABS: Glucose,Whole Blood 133 mg/dL (70-110)
[2021-09-10 19:41] LABS: Glucose,Whole Blood 132 mg/dL (70-110)
== END 2021-09-10 19:43 | disposition left against medical advice (07) ==
LOC: EC 18:42
DX: Z53.9 Procedure and treatment not carried out, unspecified reason (principal)
CPT/HCPCS: 36415; 99499

== ENCOUNTER 2022-01-17 17:40 | Emergency (ER) | payer BC ==
[2022-01-17] MEDS ORDERED: MORPHINE SULFATE 4 MG/ML SYRINGE IV STA (18:11)
--- NOTE | 2022-01-17 18:13 | ED ---
Chest Pain HPI - General Chief Complaint: Chest Pain Stated Complaint: Chest pain Time Seen by Provider: 01/17/22 18:03 Source: patient Mode of arrival: ambulatory Limitations: no limitations - History of Present Illness Initial Comments: This is a pleasant 46-year-old male who comes to the ER complaining of intermittent chest pain which started about 4 PM. Describing a tight sensation in the left chest which radiates toward the back at times. Occurred while the patient was walking at [employer]. No strenuous activity. Mild sensation of shortness of breath. No diaphoresis or nausea. History of hypertension and diabetes. Blood pressure noted to be elevated on arrival here. His taken his blood pressure medication today. Does not take daily aspirin. Last cardiac testing was around August per patient. States that the pain has been intermittent, comes for 5 or 10 minutes at a time and goes away. No headache, no fever or chills, no changes in vision or hearing, no sore throat or difficulty with speech, no neck pain, , no abdominal pain, no nausea or vomiting, no changes in urination or bowel movements, no numbness or tingling, no extremity pain, no skin rashes or lesions. Past medical, surgical, social, and family history reviewed. MD Complaint: chest pain - Related Data Home Medications Medication Instructions Recorded Confirmed Atorvastatin [Lipitor] 40 mg PO HS@1700 01/17/22 01/17/22 Chlorthalidone [Hygroton] 25 mg PO DAILY@0700 01/17/22 01/17/22 Cholecalciferol [Vitamin D3 (25 25 mcg PO DAILY@0700 01/17/22 01/17/22 Mcg = 1000 Iu)] Cyanocobalamin [Vitamin B-12] 500 mcg PO DAILY@0700 01/17/22 01/17/22 Insulin Glargine,Hum.rec.anlog 40 units SQ HS@1700 01/17/22 01/17/22 [Lantus Solostar Pen] Losartan [Cozaar] 50 mg PO DAILY@0700 01/17/22 01/17/22 carvediloL [Coreg] 6.25 mg PO BID@0700,1700 01/17/22 01/17/22 metFORMIN HCL [Glucophage] 500 mg PO BID@0700,1700 01/17/22 01/17/22 Allergies Allergy/AdvReac Type Severity Reaction Status Date / Time No Known Allergies Allergy Verified 01/17/22 19:07 Review of Systems ROS Statement: Those systems with pertinent positive or pertinent negative responses have been documented in the HPI. ROS Other: All systems not noted in ROS Statement are negative. EKG Findings - EKG Comments: EKG Findings:: EKG done at 1800 and independently interpreted by me reveals sinus rhythm with a rate of 94 Q wave noted in lead 3. Inverted T wave in lead 3. When compared to the previous study from April 2021 there is no significant change. No evidence of ST elevation or depression. Normal intervals. Data review by the ED attending physician Past Medical History Past Medical History: Diabetes Mellitus, Hyperlipidemia, Hypertension Additional Past Medical History / Comment(s): chronic leg pain History of Any Multi-Drug Resistant Organisms: None Reported Past Surgical History: No Surgical Hx Reported Additional Past Surgical History / Comment(s): EGD years ago r/t stomach pains Past Anesthesia/Blood Transfusion Reactions: No Reported Reaction Past Psychological History: No Psychological Hx Reported Smoking Status: Never smoker Past Alcohol Use History: Occasional Past Drug Use History: Marijuana - Past Family History Mother Family Medical History: Diabetes Mellitus Father Family Medical History: No Reported History General Exam - General Exam Comments Initial Comments: No significant distress at the time I'm seeing the patient. Patient noted to be hypertensive. Remainder of vital signs are normal. Limitations: no limitations General appearance: alert, in no apparent distress, obese Head exam: Present: atraumatic, normocephalic, normal inspection Eye exam: Present: normal appearance, PERRL, EOMI. Absent: scleral icterus, conjunctival injection, periorbital swelling ENT exam: Present: normal exam, normal oropharynx, mucous membranes moist, normal external ear exam. Absent: mucous membranes dry Neck exam: Present: normal inspection, full ROM. Absent: tenderness, meningismus, lymphadenopathy Respiratory exam: Present: normal lung sounds bilaterally. Absent: respiratory distress, wheezes, rales, rhonchi, stridor, chest wall tenderness, accessory muscle use, decreased breath sounds, prolonged expiratory Cardiovascular Exam: Present: regular rate, normal rhythm, normal heart sounds. Absent: systolic murmur, diastolic murmur, rubs, gallop, clicks GI/Abdominal exam: Present: soft, normal bowel sounds. Absent: distended, tenderness, guarding, rebound, rigid Extremities exam: Present: normal inspection, full ROM, normal capillary refill. Absent: tenderness, pedal edema, joint swelling, calf tenderness Back exam: Present: normal inspection Neurological exam: Present: alert, oriented X3, CN II-XII intact. Absent: motor sensory deficit Psychiatric exam: Present: normal affect, normal mood Skin exam: Present: warm, dry, intact, normal color. Absent: rash Course Vital Signs 01/17/22 01/17/22 01/17/22 17:50 18:09 18:16 Temperature 98 F Pulse Rate 95 84 Pulse Rate [ 89 Block Cleaner ] Respiratory 18 17 Rate Blood Pressure 196/108 184/103 O2 Sat by Pulse 100 100 Oximetry 01/17/22 19:08 Temperature 98.1 F Pulse Rate 86 Pulse Rate [ Block Cleaner ] Respiratory 17 Rate Blood Pressure 171/101 O2 Sat by Pulse 100 Oximetry - Reevaluation(s) Reevaluation #1: 01/17/22 18:48 Medical record is reviewed Symptoms are improved here in the emergency department Patient is informed of results and questions answered Patient in no distress Aspirin given. Nitroglycerin paste applied. Reevaluation #2: 01/17/22 19:13 Medical record is reviewed Symptoms are improved here in the emergency department Patient is informed of results and questions answered Patient in no distress Chest Pain MDM - Differential Diagnosis AMI, ACS, PE, GERD, Thoracic Aortic Dissection, Chest Wall Syndrome - MDM Differential diagnosis: Ischemic cardiac pain, chest wall pain, aortic dissection, less likely pulmonary embolism, gastrointestinal disease. Did review the echocardiogram from April 2021. Ejection fraction 55-60%. Trachea is micro-regurgitation. Trace tricuspid regurgitation, mild concentric left ventricular hypertrophy. Patient also had a cardiology consultation at that time that I did review. Dr. Moore Patient will likely be admitted due to chest pain with risk factors. Patient's heart score is 4. Based on obesity, diabetes, and hypertension. 1 view chest x-ray were independently interpreted by me reveals no evidence of acute pathology. No wide mediastinum. AMA Documentation: I, personally, had a discussion with the patient concerning their presumed diagnoses and my recommendations regarding available options for treatment. The patient understand the risks and benefits of the treatment options presented and also understands the risks of not following these recommendations and leaving the hospital against medical advice. The patient clearly has capacity to make an informed decision regarding further treatment at this time and is electing to sign out against my medical advice. Follow up arrangements were discussed with the patient and the patient was advised to consider returning to the emergency department or seeking further care should they have a worsening of their medical condition, if they should develop new or concerning symptoms, or if they should change their mind about receiving further medical care. All findings were discussed with the patient. Risk factors discussed in detail to include morbidity and mortality. The case was discussed in detail with ED attending physician. Presentation, findings, treatment plan discussed in detail. Differential Dr. 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 Follow-up with your regular physician as directed. Return to the ER immediately if any symptoms worsen, new symptoms arise, or any other problems develop. Referrals: Dash Garcia MD [Primary Care Provider] - 1-2 days Time of Disposition: 18:51 Decision to Admit Reason: Admit from EC Decision Time: 18:51
[2022-01-17 18:17] VITALS: RESP 17
[2022-01-17 18:24] LABS: Basophils # (A) 0.1 k/uL (0-0.2); Basophils % (A) 1 %; Eosinophils # (A) 0.2 k/uL (0-0.7); Eosinophils % (A) 3 %; HCT 38.8 % (39.0-53.0); HGB 13.8 gm/dL (13.0-17.5); Lymphocytes % (A) 32 %; MCHC 35.5 g/dL (31.0-37.0); MCV 81.6 fL (80.0-100.0); Mean Platelet Volume 7.9; Monocytes # (A) 0.5 k/uL (0-1.0); Monocytes % (A) 5 %; Neutrophils # (A) 5.4 k/uL (1.3-7.7); Neutrophils % (A) 58 %; Platelet Count 323 k/uL (150-450); RBC 4.75 m/uL (4.30-5.90); RDW 12.1 % (11.5-15.5); WBC 9.4 k/uL (3.8-10.6)
[2022-01-17 18:36] LABS: ALT 17 U/L (4-49); AST 21 U/L (17-59); African American GFR (CKD) >90 (>60 ml/min/1.73 sqM); Albumin 4.6 g/dL (3.5-5.0); Alkaline Phosphatase 64 U/L (38-126); Anion Gap 9 mmol/L; Blood Urea Nitrogen 26 mg/dL (9-20); Calcium 9.7 mg/dL (8.4-10.2); Carbon Dioxide 26 mmol/L (22-30); Chloride 103 mmol/L (98-107); Glucose 136 mg/dL (74-99); Magnesium 1.9 mg/dL (1.6-2.3); Non-African American GFR(CKD) 86 (>60 ml/min/1.73 sqM); Sodium 138 mmol/L (137-145); Total Bilirubin 0.5 mg/dL (0.2-1.3); Total Protein 7.3 g/dL (6.3-8.2)
[2022-01-17 18:38] LABS: Partial Thromboplastin Time 26.1 sec (22.0-30.0); Prothrombin Time 10.2 sec (9.0-12.0)
--- NOTE | 2022-01-17 18:38 | XR ---
EXAMINATION TYPE: XR chest 1V portable DATE OF EXAM: 01/17/2022 6:24 PM COMPARISON: Chest x-ray 04/21/2021 TECHNIQUE: XR chest 1V portable . CLINICAL INDICATION:Male, 46 years old with history of chest pain; FINDINGS: Lungs/Pleura: There is no evidence of pleural effusion, focal consolidation, or pneumothorax. Pulmonary vascularity: Unremarkable. Heart/mediastinum: Cardiomediastinal silhouette is unremarkable. Musculoskeletal: No acute osseous pathology. IMPRESSION: No acute cardiopulmonary disease/process.
[2022-01-17] MEDS ORDERED: NITROGLYCERIN OINT 1 INCH/GM PACKET TOPICAL STA (18:47)
[2022-01-17] MEDS ORDERED: ASPIRIN 81 MG PO STA (18:47)
[2022-01-17 19:09] VITALS: BP 171/101; PULSE 86; TEMP 98.1
== END 2022-01-17 19:24 | disposition left against medical advice (07) ==
LOC: EC 17:40
DX: R07.89 Other chest pain (principal); E11.9 Type 2 diabetes mellitus without complications; E78.5 Hyperlipidemia, unspecified; I10 Essential (primary) hypertension; F12.90 Cannabis use, unspecified, uncomplicated; Z79.02 Long term (current) use of antithrombotics/antiplatelets; Z79.84 Long term (current) use of oral hypoglycemic drugs; Z79.4 Long term (current) use of insulin; Z79.899 Other long term (current) drug therapy; Z53.29 Procedure and treatment not carried out because of patient's decision for other reasons
CPT/HCPCS: 36415; 71045; 80053; 83735; 83880; 84484; 85025; 85379; 85610; 85730; 93005; 99285